=== PATIENT | male | born 1980 | race Caucasian/White ===

== ENCOUNTER → 2024-04-09 | Outpatient (CLI) | payer OTHER ==
--- NOTE | 2024-04-09 13:18 | CA ---
Transthoracic Echo Report Name: Khoi Lugo Age: 43 Gender: M : 1980 Exam Date: 04/09/2024 11:42 Exam Location: [place] Echo Ht (in): 72 Wt (lb): 205 Ordering Physician: Joby Crawford DO Attending/Referring Phys: Jessica Griffith PAC Lead Manufacturing Engineering Tech Sana Linton RDCS Procedure CPT: Indications: E78.2 MIXED HYPERLIPIDEMIA Cardiac Hx: Technical Quality: Good Contrast 1: Total Dose (mL): Contrast 2: Total Dose (mL): MEASUREMENTS (Male / Female) Normal Values 2D ECHO LV Diastolic Diameter PLAX 4.5 cm 4.2 - 5.9 / 3.9 - 5.3 cm LV Systolic Diameter PLAX 2.6 cm IVS Diastolic Thickness 1.3 cm 0.6 - 1.0 / 0.6 - 0.9 cm LVPW Diastolic Thickness 1.3 cm 0.6 - 1.0 / 0.6 - 0.9 cm LV Relative Wall Thickness 0.6 RV Internal Dim ED PLAX 2.3 cm LA Systolic Diameter LX 4.0 cm 3.0 - 4.0 / 2.7 - 3.8 cm LV Diastolic Volume MOD BP 72.5 cm??? 67 - 155 / 56 - 104 cm??? LV Systolic Volume MOD BP 31.4 cm??? 22 - 58 / 19 - 49 cm??? LV Ejection Fraction MOD BP 56.7 % >= 55 % LV Cardiac Index MOD BP 1651.7 cm???/min???m??? LV Diastolic Volume MOD 4C 61.6 cm??? LV Systolic Volume MOD 4C 25.2 cm??? LV Ejection Fraction MOD 4C 59.1 % LV Cardiac Index MOD 4C 1464.1 cm???/min???m??? LV Diastolic Length 4C 7.3 cm LV Systolic Length 4C 6.6 cm LV Diastolic Volume MOD 2C 77.8 cm??? LV Systolic Volume MOD 2C 34.5 cm??? LV Ejection Fraction MOD 2C 55.7 % LV Cardiac Index MOD 2C 1741.9 cm???/min???m??? LV Diastolic Length 2C 8.0 cm LV Systolic Length 2C 7.6 cm LA Volume 29.7 cm??? 18 - 58 / 22 - 52 cm??? LA Volume Index 13.6 cm???/m??? 16 - 28 cm???/m??? M-MODE Aortic Root Diameter MM 2.8 cm LA Systolic Diameter MM 3.7 cm LA Ao Ratio MM 1.3 AV Cusp Separation MM 2.0 cm DOPPLER MV Area PHT 4.8 cm??? Mitral E Point Velocity 72.0 cm/s Mitral A Point Velocity 52.9 cm/s Mitral E to A Ratio 1.4 MV Deceleration Time 157.5 ms TR Peak Velocity 212.1 cm/s TR Peak Gradient 18.0 mmHg Right Ventricular Systolic Press 22.0 mmHg FINDINGS Left Ventricle Left ventricular ejection fraction is estimated at 55-60%. Normal Left ventricular size, systolic function with no obvious regional wall motion abnormalities. Normal Left ventricular diastolic filling pattern. Right Ventricle Normal right ventricular size and function. Right ventricular systolic pressure within normal limits. Right Atrium Normal right atrial size. Left Atrium Normal left atrial size. Mitral Valve Mitral valve not well visualized. Trace mitral regurgitation. No mitral stenosis. Aortic Valve Trileaflet aortic valve. No aortic valve stenosis or regurgitation. Tricuspid Valve Structurally normal tricuspid valve. Trace tricuspid regurgitation. No tricuspid stenosis. Pulmonic Valve Structurally normal pulmonic valve. Trace pulmonic regurgitation. No pulmonic stenosis. Pericardium No pericardial or pleural effusion. Aorta Normal size aortic root and proximal ascending aorta. CONCLUSIONS Normal biventricular systolic function Overall normal intracardiac valves Normal pulmonary artery systolic pressure No evidence of pericardial effusion Normal aortic root and proximal ascending aorta Previewed by: Dr. Rudi Grover MD (Electronically Signed) Final Date: 09 April 2024 13:18
--- NOTE | 2024-04-09 15:48 | CA ---
Exercise Stress Test Report Name: Khoi Lugo Exam Date: 04/09/2024 11:23 Exam Location: [place] Stress Ht (in): 72 Wt (lb): 205 BSA: 2.15 Ordering Phys: Joby Crawford DO Referring Phys: Jessica Griffith Technologist: Andrew Smith Age: 43 Gender: M : 1980 Procedure CPT: Indications: E78.2 MIXED HYPERLIPIDEMIA ICD-10 Codes: Patient History: Family history of heart disease Medications: Meds past 24 hrs: Pretest Chest Pain: STRESS TEST Shiva Protocol Exercise Duration (min:sec): 10:[address] Depressions (mm): Angina Score: Cortes Score: Resting HR (bpm): 84 Peak HR (bpm): 175 Resting BP (mmHg): 113 / 78 Peak BP (mmHg): 154 / 77 MPHR: 177 Target HR: 150 % MPHR: 99 METS: 12.1 Total Dose: Peak Dose: Atropine: Double Product: 33434 BP Response: Stress Termination: Reached target heart rate Stress Symptoms: No chest pain or symptoms Stress Summary: ECG ANALYSIS Resting ECG: Stress ECG: CONCLUSIONS Excellent exercise tolerance Normal electrocardiogram in response to exercise Dr. Rudi Grover MD (Electronically Signed) Final Date: 09 April 2024 15:47
== END | disposition home or self-care (01) ==
LOC: RADNMMAIN 10:45
PROVIDERS: ATTEND Family Medicine
DX: E78.2 Mixed hyperlipidemia
CPT/HCPCS: 93017; 93306